=== PATIENT | male | born 1965 | race Caucasian/White ===

== ENCOUNTER 2018-07-27 20:29 | Inpatient (IN) | payer OTHER ==
[~2018-07-27] VITALS: Ht 167.6 cm; Wt 88.1 kg
[2018-07-27] MEDS ORDERED: CEFEPIME 2GM/50 ML (PMX) 50 ML IVPB STA (20:34)
[2018-07-27] MEDS ORDERED: VANCOMYCIN 1 GM (PMX) 250 ML IVPB ONE (21:00)
[2018-07-27] MEDS ORDERED: LABE200T25 PO (21:03)
[2018-07-27] MEDS ORDERED: CLOP75TA19 PO (21:03)
[2018-07-27] MEDS ORDERED: ATOR-2 PO (21:03)
[2018-07-27] MEDS ORDERED: MINO2.5T16 PO (21:04)
[2018-07-27] MEDS ORDERED: ASPI-817 PO (21:04)
[2018-07-27] MEDS ORDERED: AMLO-147 PO (21:05)
[2018-07-27] MEDS ORDERED: CHLO25TA2 PO (21:05)
[2018-07-27] MEDS ORDERED: IPRATROPIUM (NEB) 0.5 MG/2.5 ML AMP HHN ONE (21:30)
[2018-07-27] MEDS ORDERED: ACETAMINOPHEN 325 MG TAB PO ONE (21:30)
[2018-07-27] MEDS ORDERED: DEXAMETHASONE 10 MG/ML 1 ML INJ IV ONE (21:30)
[2018-07-27] MEDS ORDERED: ALBUTEROL 0.083% (NEB) 2.5 MG/3 ML AMP HHN ONE (21:30)
[2018-07-27] MEDS ORDERED: SOD CHLORIDE 0.9% 1,000 ML IV STA (21:47)
[2018-07-27] MEDS ORDERED: NITROGLYCERIN 50 MG/D5W (PMX) 250 ML ONE (22:11)
[2018-07-27] MEDS ORDERED: CEFTRIAXONE 1 GM INJ IM ONE (22:30)
[2018-07-27] MEDS ORDERED: NITROGLYCERIN 50 MG/D5W (PMX) 250 ML IV SCH (22:30)
[2018-07-27] MEDS ORDERED: ONDANSETRON 4 MG INJ IV PRN (22:30)
[2018-07-27] MEDS ORDERED: VANCOMYCIN IV PER PHARMACY XX SCH (22:30)
[2018-07-27] MEDS ORDERED: ACETAMINOPHEN 325 MG TAB PO PRN (22:30)
[2018-07-27] MEDS ORDERED: DOCUSATE SODIUM 100 MG CAP PO PRN (22:30)
[2018-07-27] MEDS ORDERED: morphine 2 MG INJ IV PRN (22:30)
[2018-07-27] MEDS ORDERED: FUROSEMIDE 40 MG INJ IV ONE (22:30)
[2018-07-27] MEDS ORDERED: NORepinephrine 8MG/250 ML (PMX 250 ML IV STA (22:43)
[2018-07-27] MEDS ORDERED: ETOMIDATE 20 MG INJ IV STA (22:43)
[2018-07-27] MEDS ORDERED: MIDAZOLAM (DRIP) 50 mg/50 mL 50 ML IV STA (22:43)
[2018-07-27] MEDS ORDERED: ROCURONIUM 50 MG INJ IV STA (22:43)
[2018-07-27] MEDS ORDERED: MIDAZOLAM (DRIP) 50 mg/50 mL 50 ML IV ONE (22:46)
[2018-07-27] MEDS ORDERED: FENTAnyl (DRIP) 1000 mcg/100mL 100 ML IV ONE (23:00)
--- NOTE | 2018-07-27 23:51 | ERD ---
ER Documentation Chief Complaint Chief Complaint BIBUli RA39,SOB,on CPAP,rec'd albuterol breathing tx HPI This is a 53-year-old gentleman who presents via EMS in respiratory failure. The history is extremely limited. There is a language barrier. An panel cutter was used. Based on a series of repeat conversations as well as family member information it appears the patient was admitted to [facility] approximately 1 week ago. He stayed for 2 weeks during which time he was intubated for respiratory failure diagnosed with pneumonia and possible cardiomyopathy. This is based on discharge paperwork as well. The patient additionally was potentially diagnosed with abdominal aortic dissection. His family reports that they recommended surgery but he did not want the surgery and they were going to schedule for nonemergent surgery in 2-3 weeks. The patient was discharged 1 week ago. Today suddenly the patient became short of breath prompting EMS call. Upon arrival the patient is in respiratory failure. The patient denied any abdominal pain or lower back pain. ROS All systems reviewed and are negative except as per history of present illness. Medications Home Meds Reported Medications Amlodipine Besylate* (Amlodipine Besylate*) 10 Mg Tablet, 10 MG PO DAILY, #30 TA B 07/27/18 Chlorthalidone* (Chlorthalidone*) 25 Mg Tablet, 25 MG PO DAILY, TAB 07/27/18 Aspirin* (Aspirin* EC) 81 Mg Tablet.dr, 81 MG PO DAILY, TAB 07/27/18 Minoxidil* (Lonitin*) 2.5 Mg Tab, 5 MG PO Q12H, TAB 07/27/18 Clopidogrel Bisulfate* (Clopidogrel Bisulfate*) 75 Mg Tablet, 75 MG PO DAILY, #30 TAB 07/27/18 Labetalol Hcl* (Labetalol Hcl*) 200 Mg Tablet, 800 MG PO Q8H, TAB 07/27/18 Atorvastatin* (Atorvastatin*) 80 Mg Tablet, 80 MG PO QHS, #30 TAB 07/27/18 Allergies Allergies: Coded Allergies: No Known Allergy (Unverified , 07/27/18) PMhx/Soc Smoking Status: Unknown if ever smoked FmHx Family History: No diabetes Physical Exam Vitals Vital Signs Date Temp Pulse Resp B/P (MAP) Pulse Ox O2 O2 Flow FiO2 Time Delivery Rate 07/27/18 99 50 23:27 07/27/18 61 17 97/56 (70) 100 [place] 23:20 l Ventilato r 07/27/18 62 16 93/59 (70) 100 [place] 22:58 l Ventilato r 07/27/18 63 16 97 60 22:43 07/27/18 64 84/63 (70) 100 [place] 22:42 l Ventilato r 07/27/18 64 16 84/63 (70) 100 22:41 07/27/18 53 28 94/54 (67) 100 BIPAP 22:35 07/27/18 73 100 60 21:30 07/27/18 60 36 100 60 21:24 07/27/18 100 60 21:20 07/27/18 64 31 120/83 100 BIPAP 20:50 (95) 07/27/18 100.5 66 31 108/68 97 20:35 (81) 07/27/18 75 100 100 20:33 Physical Exam General: The patient has respiratory distress, diaphoresis and respiratory failure Head: Normocephalic, atraumatic. Eyes: Pupils equally reactive, EOM intact ENT: Moist mucous membranes Neck: Supple, no lymphadenopathy Respiratory: Respiratory distress, increased work of breathing, rhonchi and rales bilaterally Cardiovascular: Tachycardia, no murmurs, rubs, or gallops Abdominal: Soft, non-tender, non-distended, no peritoneal signs, no pulsatile mass, abdominal wall ascites : Deferred MSK: Anasarca to upper and lower extremities Neurologic: Limited exam but moving all extremities Skin: No rash Psych: Normal mood Result Diagram: 07/27/18204107/27/182041 Results 24 hrs Laboratory Tests Test 07/27/18 20:34 07/27/18 20:42 07/27/18 20:43 07/27/18 22:43 Blood Gas Blood arterial Blood arterial Specimen Source Arterial Blood 07/27/2018 8:50: 07/27/2018 11:15 Date Drawn 33 PM :53 PM Arterial Blood 7.335 7.246 pH (Temp corrected ) Arterial Blood 33.9 mmhg 39.9 mmhg pCO2 (Temp correct) Arterial Blood 352.5 mmHG 110.2 mmHG pO2 (Temp corrected ) Arterial Blood 17.7 mmol/L 16.9 mmol/L HCO3 Arterial Blood -7.4 mmol/L -9.6 mmol/L Base Excess Arterial Blood 99.4 mmHG 96.8 mmHG Oxygen Saturati on Sg Test N/A N/A Arterial Blood Right Brachial Right Brachial Gas Puncture Site Arterial 0.3 % 0.3 % Blood Carboxyhe moglobin Arterial Blood 0.3 % 0.5 % Methemoglobin Blood Gas A-a 326.6 mmHg 273.7 mmHg O2 Differential Oxyhemoglobin 98.8 % 96.0 % Percent Blood Gas 37.0 C 37.0 C Temperature Blood Gas 18.0 16.0 Respiration Rate Blood Gas 32 16 Actual Respiration Rat e Blood Gas MASK - BIPAP VENT - AC Modality FiO2 100.0 % 60.0 % Blood Gas 10 Pressure Support Blood Gas 15/5 IPAP/EPAP Ratio Blood Gas UP MM Notified Whom Blood Gas 07/27/2018 9:04: 07/27/2018 11:23 Notified Time 21 PM :41 PM White Blood 7.5 10^3/ul Count Red Blood Count 3.22 10^6/ul Hemoglobin 8.5 g/dl Hematocrit 25.8 % Mean 80.1 fl Corpuscular Volume Mean 26.4 pg Corpuscular Hemoglobin Mean 32.9 g/dl Corpuscular Hemoglobin Conc ent Red Cell 14.2 % Distribution Width Platelet Count 334 10^3/UL Mean Platelet 10.7 fl Volume Immature 0.400 % Granulocytes % Neutrophils % 80.8 % Lymphocytes % 12.6 % Monocytes % 6.0 % Eosinophils % 0.1 % Basophils % 0.1 % Nucleated Red 0.0 /100WBC Blood Cells % Immature 0.030 10^3/ul Granulocytes # Neutrophils # 6.1 10^3/ul Lymphocytes # 1.0 10^3/ul Monocytes # 0.5 10^3/ul Eosinophils # 0.0 10^3/ul Basophils # 0.0 10^3/ul Nucleated Red 0.0 10^3/ul Blood Cells # Prothrombin 14.5 Sec Time Prothrombin 1.1 Time Ratio INR 1.12 International Normalized Rati o Activated 38.4 Sec Partial Thrombo plast Time Sodium Level 127 mmol/L Potassium Level 4.8 mmol/L Chloride Level 95 mmol/L Carbon Dioxide 21 mmol/L Level Anion Gap 11 Blood Urea 71 mg/dl Nitrogen Creatinine 5.53 mg/dl Est Glomerular 11 mL/min Filtrat Rate mL/min Glucose Level 121 mg/dl Hemoglobin A1c 6.3 % Calcium Level 7.7 mg/dl Total Bilirubin 0.1 mg/dl Direct 0.00 mg/dl Bilirubin Indirect 0.1 mg/dl Bilirubin Aspartate Amino 76 IU/L Transf (AST/SGO T) Alanine 102 IU/L Aminotransferas e (ALT/SGPT) Alkaline 273 IU/L Phosphatase Troponin I 0.078 ng/ml B-Type 5310 PG/ML Natriuretic Peptide Total Protein 7.0 g/dl Albumin 3.5 g/dl Globulin 3.50 g/dl Albumin/Globuli 1.00 n Ratio Lipase 3466 U/L POC Venous 1.9 mmol/L Lactate Blood Gas Tidal 550.0 mL Volume Blood Gas Low 5.0 cmH2O PEEP Setting Blood Gas 23.0 Insp[address] Pressure Blood Gas DR. YANEZ Critical Value Read Back Test 07/27/18 23:14 POC Venous 1.1 mmol/L Lactate Current Medications Medications Dose Sig/Ritchie Start Time Status Last (Trade) Ordered Route PRN Stop Time Admin Dose Reason Admin Cefepime HCl 50 ml @ ONCE STAT 07/27/18 DC 07/27/18 100 mls/hr IVPB 20:34 20:54 07/27/18 21:03 Vancomycin 250 ml @ ONCE ONCE 07/27/18 DC 07/27/18 HCl 125 mls/hr IVPB 21:00 21:25 07/27/18 22:59 Albuterol 10 mg ONCE ONCE 07/27/18 DC 07/27/18 (Proventil HHN 21:30 21:24 0.083% (Neb)) 07/27/18 21:31 Ipratropium 5 mg ONCE ONCE 07/27/18 DC 07/27/18 [place] HHN 21:30 21:23 (Atrovent 07/27/18 21:31 0.02% (Neb)) 10 mg ONCE ONCE 07/27/18 DC 07/27/18 Dexamethasone IV 21:30 21:57 (Decadron) 07/27/18 21:31 650 mg ONCE ONCE 07/27/18 DC 07/27/18 Acetaminophen PO 21:30 21:57 (Tylenol 07/27/18 21:31 Tab) Sodium 1,000 ml @ Q1H STAT 07/27/18 DC 07/27/18 Chloride 1,000 mls/hr IV 21:47 21:56 07/27/18 22:46 250 ml @ ud STK-MED 07/27/18 DC Nitroglycerin ONCE .ROUTE 22:11 / Dextrose 07/27/18 22:12 250 ml @ TITRATE IV 07/27/18 Nitroglycerin 80 mls/hr 22:30 / Dextrose Furosemide 40 mg ONCE ONCE 07/27/18 DC (Lasix) IV 22:30 07/27/18 22:31 Ondansetron 4 mg Q6H PRN 07/27/18 HCl (Zofran IV NAUSEA 22:30 Inj) AND/OR VOMITING Albuterol/ 3 ml Q4H RESP 07/28/18 Ipratropium THERAPY NEB 01:00 (Duoneb) Albuterol 2.5 mg Q4H RESP 07/28/18 DC (Proventil THERAPY NEB 01:00 0.083% (Neb)) 07/28/18 01:00 650 mg Q6H PRN 07/27/18 Acetaminophen PO PAIN 22:30 (Tylenol LEVEL 1-3 OR Tab) FEVER Morphine 2 mg Q4H PRN 07/27/18 Sulfate IV PAIN 22:30 (morphine) LEVEL 7-10 Docusate 100 mg Q12H PRN 07/27/18 Sodium PO 22:30 (Colace) CONSTIPATION 40 mg DAILY@06 07/28/18 Pantoprazole PO 06:00 (Protonix Tab) Enoxaparin 30 mg DAILY SC 07/28/18 Sodium 09:00 (Lovenox) Vancomycin VANCOMYCIN PER 07/27/18 HCl (Vanco PER PHARMACY PROTOCOL XX 22:30 Iv Per Pharmacy) Ceftriaxone 1 gm ONCE ONCE 07/27/18 DC Sodium IM 22:30 (Rocephin) 07/27/18 22:44 Rocuronium 100 mg ONCE STAT 07/27/18 DC 07/27/18 [place] IV 22:43 22:36 (Zemuron) 07/27/18 22:46 Etomidate 20 mg ONCE STAT 07/27/18 DC 07/27/18 (Amidate) IV 22:43 22:36 07/27/18 22:46 Midazolam 50 ml @ 3 ONCE STAT 07/27/18 07/27/18 HCl mls/hr IV 22:43 23:24 07/28/18 15:22 Fentanyl 100 ml @ TITRATE 07/27/18 2.5 mls/hr ONCE IV 23:00 07/29/18 14:59 250 ml @ ONCE STAT 07/27/18 07/27/18 Norepinephrin 7.5 mls/hr IV 22:43 23:22 e 07/29/18 08:02 Midazolam 50 ml @ ud STK-MED 07/27/18 DC HCl ONCE IV 22:46 07/27/18 22:47 Vancomycin 100 ml @ ONCE ONCE 07/28/18 HCl 100 mls/hr IVPB 00:00 07/28/18 00:59 Procedures/MDM EKG, MONITORS, & DIAGNOSTIC IMAGING: EKG: I reviewed and interpreted a 12-lead EKG. Rhythm: Left bundle branch block ST Changes: No contiguous ST segment elevations T waves: No contiguous T wave inversions Impression: Abnormal EKG Chest x-ray: I reviewed and interpreted a 1 view of the chest Mediastinum: No enlargement Cardiac silhouette: cardiomegaly Airspace: Possible right-sided pneumonia Bones: No evidence of fracture Repeat chest x-ray: PROCEDURES: Intubation Note: Indication: Airway protection Consent: This was an emergent situation, implied consent was observed RSI Medications: Etomidate 20 mg, Rocuronium 100 mg Tube size: 7.5 Secured at: 24 at the mouth Procedure: Endotracheal intubation was performed. The patient was preoxygenated with supplemental oxygen, the room was set up with emergency airway equipment including [id number], suction, and adjunct airways. Direct visualization of the cords was performed with direct laryngoscopy using video laryngoscope, insertion of the endotracheal tube through the cords was visualized. Bilateral breath sounds were auscultated, color change was observed. The tube was then secured in a postintubation chest x-ray was ordered. The patient tolerated the procedure well there were no complications. Central Line Note: Consent: Critical patient, unable to obtain informed consent Indication: Critically ill patient requiring specialized vascular access for fluid or pressor management Location: Right IJ Indication: Shock Procedure: Sterile procedure was observed throughout insertion of the central line. The insertion site was prepped with sterile solution. Ultrasound-guided identification of the vein was performed. Insertion of a needle into the vein was obtained with return of dark, nonpulsatile blood. The wire was then threaded through the needle without complication. The wire was then identified within the vein using ultrasound. A small skin incision was made, the needle was removed intact, dilation of the vein was performed and insertion of a triple lumen catheter was completed. The catheter was then sutured to the skin. All 3 ports sin back and flushed without difficulty. A sterile dressing was applied. The patient tolerated the procedure well there were no complications. Emergency Bedside Ultrasound: Indication: Central line Probe Type: Linear Findings: Dynamic ultrasound utilizing compressive technique with both linear and horizontal views, additional images showing wire within the venous system were obtained. The images were saved along with patient information on a paper chart to be scanned into EMR. The patient tolerated the procedure well and there were no complications. A post-line chest x-ray was ordered as indicated. LAB INTERPRETATION: * CBC reveals no evidence of leukocytosis, mild anemia of 8.5. * Chemistry shows hyponatremia, acute renal failure of 71 and 5.53, normal lactic acid of 1.9, negative troponin, elevated BNP, transaminitis with elevated lipase of 3400 * Arterial blood gas is reassuring initially, repeat concerning for acidosis, metabolic MEDICAL DECISION MAKING: The patient arrives in respiratory failure. His clinical exam and presentation are complicated. Initially based on the patient's clinical appearance of anasarca and respiratory failure this would be consistent with pulmonary edema however the patient's chest x-ray does not support this diagnosis. Cardiogenic process is still highly likely given the patient's documentation and recent discharge. However, pneumonia could be a possibility as well. Consider possible underlying lung disease such as COPD or emphysema. The patient did have a diagnosis of abdominal aortic dissection but denies any abdominal pain or back pain. I do not believe there is an acute aortic process at this time. ER COURSE: * Upon initial evaluation the patient was in respiratory failure and started on positive pressure ventilation. * His initial blood pressure was 120 systolic, EMS reported hypotension. Given the patient's clinical appearance of anasarca I was questioning aggressive fluid resuscitation. Patient was started on BiPAP and treated for reactive airway disease with steroids, breathing treatment * He was covered for pneumonia with blood cultures prior to antibiotics and broad-spectrum antibiotics. * While the patient does have Sirs criteria does not have a fever and does not have a white count. Infectious etiology seems less likely. Given the patient's volume status I am concerned that a 30 cc/kg bolus of saline would be contraindicated. * The patient's blood pressure continued to be in the 120s. A trial of 1 L of normal saline was initiated but the family provided further history that this was more consistent with cardiogenic process. The fluid was discontinued. At that time the patient's blood pressure jumped into the 180 range. Nitroglycerin was ordered for afterload reduction. Additionally Lasix was ordered. * However, prior to initiation of these therapies the patient's blood pressure dropped back into the 70s and 80s. * At this point the patient's respiratory status declined. I was concerned for respiratory failure and apnea. Intubation was necessary. * The patient was intubated and a triple-lumen catheter was inserted. Levo to the bedside. Continue with gentle fluid resuscitation. * Concern for possible cardiogenic shock. The patient has a very complicated presentation including acute renal failure, acute respiratory failure and concern for possible cardiogenic shock. Nephrology, pulmonology and cardiolo gy were consulted. * A stat echo has been ordered. CONSULTATION: Boiler Control Room Operator james Bell. Dr Leroy implementation project coordinator, notified Nephrology Dr. Rajiv Martínez notified Pulmonology Dr. Archer notified DISPOSITION PLAN: Intensive care unit Accepting care team and consultations: I discussed the current laboratory data, diagnostic imaging and emergency care provided. Admitting team: Dr. De La Rosa Admitting team indication: Insurance directed Sepsis Documentation: Patient's infectious symptoms have not stabilized and the patient is at risk of rapid decompensation. The patient will be admitted for careful hydration, antibiotic therapy, and infectious source control. SEVERE SEPSIS CRITERIA: Infectious source: Healthcare associated pneumonia End organ damage indicated by: Acute Resp Failure (sat < 92% w/o oxygen) Accounts Payable Professional > 2.0 SEPSIS MANAGEMENT Time of recognition of sepsis: Upon MD assessment. Time of recognition of severe sepsis: Upon MD assessment. Time of recognition of septic shock: Approximately 10:30 PM. 3 HOUR BUNDLE Blood cultures x 2 before broad-spectrum antibiotics: Yes 30 ml/kg NS bolus a full bolus was not provided given reasoning above Initial lactate less than 2 Repeat lactate less than 2 SEPTIC SHOCK ASSESSMENT: No lactic acid > 4.0 YES Persistent hypotension (SBP < 90 or 40 mmHg drop, MAP < 65) despite mild volume bolus VOLUME REASSESSMENT FOR SEPTIC SHOCK: Reevaluation Time: 11:48pm Temperature pending, reviewed in electronic medical record, heart rate 61, respiratory rate 17, blood pressure 97/56, pulse ox 100% on ventilator Heart regular rate & rhythm Lungs rhonchi Skin warm & dry Cap Refill less than 2 seconds Peripheral pulses radially present PERSISTENT HYPOTENSION TREATMENT: Comfort care no Central line RIJ Vasopressor started Levo to bedside I considered further perfusion assessment with CVP measurement, SCVO2, bedside ultrasound volume assessment, passive leg raise, trial of further fluid bolus. And proceeded with careful fluid bolus of NSS, broad spectrum antibiotics, and admission. CRITICAL CARE Critical care time 55 minutes Emergent fluid management while maintaining close respiratory support. Provision of immediate and broad-spectrum antibiotic therapy. Simultaneous assessment for possible sources in order to direct targeted therapy. Consideration for invasive and chemical support to prevent cardiopulmonary mason apse. Critical care time is independent of procedures performed. Departure Diagnosis: Primary Impression: Acute respiratory failure Respiratory failure complication: hypoxia Qualified Codes: J96.01 - Acute respiratory failure with hypoxia Additional Impressions: Healthcare-associated pneumonia Septic shock Acute renal failure Acute renal failure type: unspecified Qualified Codes: N17.9 - Acute kidney failure, unspecified Transaminitis Pancreatitis Chronicity: acute Pancreatitis type: unspecified pancreatitis type Acute pancreatitis complication: unspecified Qualified Codes: K85.90 - Acute pancreatitis without necrosis or infection, unspecified Hyponatremia Condition: Critical NANCY YANEZ MD Jul 27, 2018 23:49
[2018-07-28] VITALS (53 sets, daily range): BP systolic 102–141; BP diastolic 53–83; PULSE 50–61; RESP 13–20; Ht 167.6 cm; Wt 88.1 kg
[2018-07-28] MEDS ORDERED: VANCOMYCIN 500 MG (PMX) 100 ML IVPB ONE
[2018-07-28] MEDS ORDERED: ALBUTEROL 0.083% (NEB) 2.5 MG/3 ML AMP NEB SCH (01:00)
[2018-07-28] MEDS ORDERED: ALBUTEROL/IPRATROPIUM (NEB) 3 ML AMP NEB SCH (01:00)
[2018-07-28] MEDS: ALBUTEROL HFA 8 GM INHALER INH SCH ×5 (05:06→20:02)
[2018-07-28] MEDS: IPRATROPIUM (HFA) 12.9 GM INHALER INH SCH ×5 (05:06→20:02)
[2018-07-28] MEDS: PANTOPRAZOLE (EC) 40 MG TAB PO SCH (06:00)
--- NOTE | 2018-07-28 08:55 | CONS ---
Date/Time of Note Date/Time of Note DATE: 07/28/18 TIME: 08:50 Assessment/Plan Assessment/Plan Assessment/Plan Chest x-ray showing pulmonary edema with cardiomegaly. Ventilator setting; AC of 22, tidal volume 550, PEEP of 10, 100% FiO2. Assessment recommendations; 1 patient with history of cardiomyopathy admitted for CHF exacerbation leading to respiratory failure. 2. Likely underlying sleep apnea. 3. Morbid obesity. 4. Diabetes. 5. Thoracic seen on chest x-ray. Aortic aneurysm 6. Likely chronic renal insufficiency with acute renal failure. 7. UTI. 8. History of hypertension. Continue current supportive care. Wean down FiO2 as tolerated. Obtain follow- up chest x-ray in 24 hours. Obtain nephrology consult. 40 minutes of critical care time was spent evaluating the patient. Result Diagram: 07/27/18204107/28/180 Results 24hrs Laboratory Tests Test 07/27/18 20:34 07/27/18 20:42 07/27/18 20:43 07/27/18 22:43 Blood Gas Blood arterial Blood arterial Specimen Source Arterial Blood 07/27/2018 8:50: 07/27/2018 11:15 Date Drawn 33 PM :53 PM Arterial Blood 7.335 L 7.246 *L pH (Temp corrected) Arterial Blood 33.9 L 39.9 pCO2 (Temp correct) Arterial Blood 352.5 H 110.2 H pO2 (Temp corrected) Arterial Blood 17.7 L 16.9 L HCO3 Arterial Blood -7.4 L -9.6 L Base Excess Arterial Blood 99.4 H 96.8 Oxygen Saturatio n Sg Test N/A N/A Arterial Blood Right Brachial Right Brachial Gas Puncture Site Arterial 0.3 0.3 Blood Carboxyhem oglobin Arterial Blood 0.3 0.5 Methemoglobin Blood Gas A-a O2 326.6 H 273.7 H Differential Oxyhemoglobin 98.8 96.0 Percent Blood Gas 37.0 37.0 Temperature Blood Gas 18.0 16.0 Respiration Rate Blood Gas Actual 32 16 Respiration Rate Blood Gas MASK - BIPAP VENT - AC Modality FiO2 100.0 60.0 Blood Gas 10 Pressure Support Blood Gas 15/5 IPAP/EPAP Ratio Blood Gas UP MM Notified Whom Blood Gas 07/27/2018 9:04: 07/27/2018 11:23 Notified Time 21 PM :41 PM White Blood 7.5 Count Red Blood Count 3.22 L Hemoglobin 8.5 L Hematocrit 25.8 L Mean Corpuscular 80.1 L Volume Mean Corpuscular 26.4 L Hemoglobin Mean Corpuscular 32.9 Hemoglobin Maria A nt Red Cell 14.2 Distribution Width Platelet Count 334 Mean Platelet 10.7 H Volume Immature 0.400 Granulocytes % Neutrophils % 80.8 H Lymphocytes % 12.6 L Monocytes % 6.0 Eosinophils % 0.1 Basophils % 0.1 Nucleated Red 0.0 Blood Cells % Immature 0.030 Granulocytes # Neutrophils # 6.1 Lymphocytes # 1.0 Monocytes # 0.5 Eosinophils # 0.0 Basophils # 0.0 Nucleated Red 0.0 Blood Cells # Prothrombin Time 14.5 Prothrombin Time 1.1 Ratio INR 1.12 International Normalized Ratio Activated 38.4 H Partial Thrombop last Time Sodium Level 127 L Potassium Level 4.8 Chloride Level 95 L Carbon Dioxide 21 Level Anion Gap 11 Blood Urea 71 H Nitrogen Creatinine 5.53 H Est Glomerular 11 L Filtrat Rate mL/min Glucose Level 121 Hemoglobin A1c 6.3 H Calcium Level 7.7 L Total Bilirubin 0.1 L Direct Bilirubin 0.00 Indirect 0.1 Bilirubin Aspartate Amino 76 H Transf (AST/SGOT ) Alanine 102 H Aminotransferase (ALT/SGPT) Alkaline 273 H Phosphatase Troponin I 0.078 B-Type 5310 H Natriuretic Peptide Total Protein 7.0 Albumin 3.5 Globulin 3.50 H Albumin/Globulin 1.00 Ratio Lipase 3466 H POC Venous 1.9 Lactate Blood Gas Tidal 550.0 Volume Blood Gas Low 5.0 PEEP Setting Blood Gas 23.0 Inspiratory Pressure Blood Gas DR. YANEZ Critical Value Read Back Test 07/27/18 23:14 07/28/18 00:20 07/28/18 01:41 07/28/18 04:00 POC Venous 1.1 Lactate Urine Color ROMULO Urine Clarity TURBID A Urine pH 5.0 Urine Specific 1.018 [place] Urine Ketones TRACE A Urine Nitrite NEGATIVE Urine Bilirubin NEGATIVE Urine NEGATIVE Urobilinogen Urine Leukocyte NEGATIVE Esterase Urine 96 H Microscopic RBC Urine 24 H Microscopic WBC Urine Bacteria FEW A Urine Mucus FEW A Urine Hemoglobin 1+ H Urine Glucose NEGATIVE Urine Total 3+ H Protein Lactic Acid 0.8 Level Sodium Level 131 L Potassium Level 5.1 Chloride Level 97 Carbon Dioxide 17 L Level Anion Gap 17 H Blood Urea 75 H Nitrogen Creatinine 5.85 H Est Glomerular 10 L Filtrat Rate mL/min Glucose Level 173 Calcium Level 7.6 L Lipase 2404 H Consultation Date/Type/Reason Admit Date/Time Jul 27, 2018 at 22:00 Date of Consultation: Jul 28, 2018 Type of Consult Pulmonary/critical care Patient is a 53-year-old male who was brought into the ER yesterday with shortness of breath. Patient was found to be in respiratory failure and was intubated. By the time I saw him in ICU, patient is orally intubated and sedated. History was obtained from patient's sister as well as medical record. Patient however did not appear to be in any distress. Past medical history; 1. CHF. 2. Likely chronic type II respiratory failure. 3. Diabetes. 4. Chronic lower extremity edema. 5. Apparent chronic renal insufficiency/failure. Medications; reviewed. Patient is currently on insulin 7 units/h, propofol 20 mics per minute. Other medications were reviewed as well. Allergies; none. Social; positive for smoking alcohol abuse. Family history; patient is single, has 3 children. Has 2 sisters who take care of him. Occupational history; patient is on disability/medical leave. Review of system; unable to be obtained. General exam; young male, morbidly obese, orally intubated, sedated, currently in no distress. Past Medical History Medications Current Medications Nitroglycerin/ Dextrose 250 ml @ 80 mls/hr TITRATE IV ; Start 07/27/18 at 22:30 Ondansetron HCl (Zofran Inj) 4 mg Q6H PRN IV NAUSEA AND/OR VOMITING; Start 07/27/18 at 22:30 Acetaminophen (Tylenol Tab) 650 mg Q6H PRN PO PAIN LEVEL 1-3 OR FEVER; Start 07/27/18 at 22:30 Morphine Sulfate (morphine) 2 mg Q4H PRN IV PAIN LEVEL 7-10; Start 07/27/18 at 22:30 Docusate Sodium (Colace) 100 mg Q12H PRN PO CONSTIPATION; Start 07/27/18 at 22:30 Pantoprazole (Protonix Tab) 40 mg DAILY@06 PO ; Start 07/28/18 at 06:00 Enoxaparin Sodium (Lovenox) 30 mg DAILY SC ; Start 07/28/18 at 09:00 Vancomycin HCl (Vanco Iv Per Pharmacy) VANCOMYCIN PER PHARMACY PER PROTOCOL XX ; Start 07/27/18 at 22:30 Midazolam HCl 50 ml @ 3 mls/hr ONCE STAT IV Last administered on 07/27/18at 23:24; Admin Dose 3 MLS/HR; Start 07/27/18 at 22:43; Stop 07/28/18 at 15:22 Fentanyl 100 ml @ 2.5 mls/hr TITRATE ONCE IV ; Start 07/27/18 at 23:00; Stop 07/29/18 at 14:59 Norepinephrine 250 ml @ 7.5 mls/hr ONCE STAT IV Last administered on 07/27/18at 23:22; Admin Dose 7.5 MLS/HR; Start 07/27/18 at 22:43; Stop 07/29/18 at 08:02 Albuterol (Ventolin Hfa) 4 puff Q4H RESP THERAPY INH Last administered on 07/28/18at 05:06; Admin Dose 4 PUFF; Start 07/28/18 at 05:00 Ipratropium [place] (Atrovent Hfa) 4 puff Q4H RESP THERAPY INH Last administered on 07/28/18at 05:06; Admin Dose 4 PUFF; Start 07/28/18 at 05:00 Allergies: Coded Allergies: No Known Allergy (Unverified , 07/27/18) Social History Smoking Status: Unknown if ever smoked Exam/Review of Systems Vital Signs Vitals Vital Signs Date Temp Pulse Resp B/P (MAP) Pulse Ox O2 O2 Flow FiO2 Time Delivery Rate 07/28/18 51 08:00 07/28/18 15 110/67 100 06:30 (81) 07/28/18 50 05:07 07/28/18 97.2 04:00 07/28/18 Mechanical 00:47 Ventilator Intake and Output 07/27/18 07/27/18 07/28/18 1515:00 23:00 07:00 IntakeIntake Total 1000 ml OutputOutput Total 325 ml BalanceBalance 675 ml Exam HEENT exam; supple neck, JVD difficult to see because of short neck. No thyromegaly. Orally intubated. Patient has fair dentition. Pupils are small bilaterally. Chest exam; diminished breath sounds bilaterally. S1-S2 audible, no murmurs. Regular rhythm. Abdomen exam; soft, protuberant. Organomegaly difficult to assess. Bowel sounds are sluggish. Extremity exam; no peripheral edema. Chronic lower extremity skin changes. DISTRIBUTION ACCOUNTING CLERK exam; patient is sedated. Medications Medications Current Medications Nitroglycerin/ Dextrose 250 ml @ 80 mls/hr TITRATE IV ; Start 07/27/18 at 22:30 Ondansetron HCl (Zofran Inj) 4 mg Q6H PRN IV NAUSEA AND/OR VOMITING; Start 07/27/18 at 22:30 Acetaminophen (Tylenol Tab) 650 mg Q6H PRN PO PAIN LEVEL 1-3 OR FEVER; Start 07/27/18 at 22:30 Morphine Sulfate (morphine) 2 mg Q4H PRN IV PAIN LEVEL 7-10; Start 07/27/18 at 22:30 Docusate Sodium (Colace) 100 mg Q12H PRN PO CONSTIPATION; Start 07/27/18 at 22:30 Pantoprazole (Protonix Tab) 40 mg DAILY@06 PO ; Start 07/28/18 at 06:00 Enoxaparin Sodium (Lovenox) 30 mg DAILY SC ; Start 07/28/18 at 09:00 Vancomycin HCl (Vanco Iv Per Pharmacy) VANCOMYCIN PER PHARMACY PER PROTOCOL XX ; Start 07/27/18 at 22:30 Midazolam HCl 50 ml @ 3 mls/hr ONCE STAT IV Last administered on 07/27/18at 23:24; Admin Dose 3 MLS/HR; Start 07/27/18 at 22:43; Stop 07/28/18 at 15:22 Fentanyl 100 ml @ 2.5 mls/hr TITRATE ONCE IV ; Start 07/27/18 at 23:00; Stop 07/29/18 at 14:59 Norepinephrine 250 ml @ 7.5 mls/hr ONCE STAT IV Last administered on 07/27at 23:22; Admin Dose 7.5 MLS/HR; Start 07/27/18 at 22:43; Stop 07/29/18 at 08:02 Albuterol (Ventolin Hfa) 4 puff Q4H RESP THERAPY INH Last administered on 07/28/18at 05:06; Admin Dose 4 PUFF; Start 07/28/18 at 05:00 Ipratropium [place] (Atrovent Hfa) 4 puff Q4H RESP THERAPY INH Last administer ed on 07/28/18at 05:06; Admin Dose 4 PUFF; Start 07/28/18 at 05:00 DERIAN WU Jul 28, 2018 08:55
[2018-07-28] MEDS: ENOXAPARIN 30 MG/0.3 ML SYG SC SCH (09:19)
[2018-07-28] MEDS ORDERED: DEXTROSE 50% 50 ML SYRINGE IV PRN ×2 (09:30)
[2018-07-28] MEDS ORDERED: GLUCAGON 1 MG INJ IM PRN (09:30)
[2018-07-28] MEDS ORDERED: GLUCOSE GEL 15 GRAM TUBE BUCCAL PRN (09:30)
[2018-07-28] MEDS ORDERED: GLUCOSE GEL 15 GRAM TUBE PO PRN ×2 (09:30)
--- NOTE | 2018-07-28 09:55 | CONS ---
Date/Time of Note Date/Time of Note DATE: 07/28/18 TIME: 09:54 Assessment/Plan Assessment/Plan Assessment/Plan 1. Acute kidney injury Oliguric on CKD III due to ATN + possible Dissection causing poor perfusion 2. Acute fluid overload with pulmoanry edema 3. acute hypoxemic resp failure due to CHF + pulmonary Edema + Pneumonia 4. 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 Hyponatremia due to Hypervolemic Hyponatremia from CHF 6. H/o CHF wiht last known EF 22% as per sister 7. H/o HTN 8. H/o HL 9. H/o Aortic dissection type B Recently diagnosed at [facility] - type B dissection from the left subclavian to the left iliac artery Plan: Overnight pt received Lasix 40mg IV x 1 dose, Urine output did not sisal picker- will start bumex 1mg/hr x 12 hr- pt has been making adequate urine since then S/p vascular surgery consultation, agree with transfer to Tertiary level of care BP has been stable, IV abx for PNA, renally dose all abx and Monitor electrolytes Discussed with pt sister at bedside with grenadian translation about possible need of HD if Urine output do not improve. she is agreeable to have blade Dialysis catheter and HD initiaton if needed Pt will need CT angiogram of abodminal aorta for dissection but he needs to get transferred to Tertiary level of care. Renal US has been ordered Urine Studies including Urine Na, urine prot/cr ration, urine eosinophisl, CK total, Uric acid Result Diagram: 07/27/18204107/28/18 0400 Results 24hrs Laboratory Tests Test 07/27/18 20:34 07/27/18 20:42 07/27/18 20:43 07/27/18 22:43 Blood Gas Blood arterial Blood arterial Specimen Source Arterial Blood 07/27/2018 8:50: 07/27/2018 11:15 Date Drawn 33 PM :53 PM Arterial Blood 7.335 L 7.246 *L pH (Temp corrected) Arterial Blood 33.9 L 39.9 pCO2 (Temp correct) Arterial Blood 352.5 H 110.2 H pO2 (Temp corrected) Arterial Blood 17.7 L 16.9 L HCO3 Arterial Blood -7.4 L -9.6 L Base Excess Arterial Blood 99.4 H 96.8 Oxygen Saturatio n Sg Test N/A N/A Arterial Blood Right Brachial Right Brachial Gas Puncture Site Arterial 0.3 0.3 Blood Carboxyhem oglobin Arterial Blood 0.3 0.5 Methemoglobin Blood Gas A-a O2 326.6 H 273.7 H Differential Oxyhemoglobin 98.8 96.0 Percent Blood Gas 37.0 37.0 Temperature Blood Gas 18.0 16.0 Respiration Rate Blood Gas Actual 32 16 Respiration Rate Blood Gas MASK - BIPAP VENT - AC Modality FiO2 100.0 60.0 Blood Gas 10 Pressure Support Blood Gas 15/5 IPAP/EPAP Ratio Blood Gas UP MM Notified Whom Blood Gas 07/27/2018 9:04: 07/27/2018 11:23 Notified Time 21 PM :41 PM White Blood 7.5 Count Red Blood Count 3.22 L Hemoglobin 8.5 L Hematocrit 25.8 L Mean Corpuscular 80.1 L Volume Mean Corpuscular 26.4 L Hemoglobin Mean Corpuscular 32.9 Hemoglobin Maria A nt Red Cell 14.2 Distribution Width Platelet Count 334 Mean Platelet 10.7 H Volume Immature 0.400 Granulocytes % Neutrophils % 80.8 H Lymphocytes % 12.6 L Monocytes % 6.0 Eosinophils % 0.1 Basophils % 0.1 Nucleated Red 0.0 Blood Cells % Immature 0.030 Granulocytes # Neutrophils # 6.1 Lymphocytes # 1.0 Monocytes # 0.5 Eosinophils # 0.0 Basophils # 0.0 Nucleated Red 0.0 Blood Cells # Prothrombin Time 14.5 Prothrombin Time 1.1 Ratio INR 1.12 International Normalized Ratio Activated 38.4 H Partial Thrombop last Time Sodium Level 127 L Potassium Level 4.8 Chloride Level 95 L Carbon Dioxide 21 Level Anion Gap 11 Blood Urea 71 H Nitrogen Creatinine 5.53 H Est Glomerular 11 L Filtrat Rate mL/min Glucose Level 121 Hemoglobin A1c 6.3 H Calcium Level 7.7 L Total Bilirubin 0.1 L Direct Bilirubin 0.00 Indirect 0.1 Bilirubin Aspartate Amino 76 H Transf (AST/SGOT ) Alanine 102 H Aminotransferase (ALT/SGPT) Alkaline 273 H Phosphatase Troponin I 0.078 B-Type 5310 H Natriuretic Peptide Total Protein 7.0 Albumin 3.5 Globulin 3.50 H Albumin/Globulin 1.00 Ratio Lipase 3466 H POC Venous 1.9 Lactate Blood Gas Tidal 550.0 Volume Blood Gas Low 5.0 PEEP Setting Blood Gas 23.0 Inspiratory Pressure Blood Gas DR. YANEZ Critical Value Read Back Test 07/27/18 23:14 07/28/18 00:20 07/28/18 01:41 07/28/18 04:00 POC Venous 1.1 Lactate Urine Color ROMULO Urine Clarity TURBID A Urine pH 5.0 Urine Specific 1.018 [place] Urine Ketones TRACE A Urine Nitrite NEGATIVE Urine Bilirubin NEGATIVE Urine NEGATIVE Urobilinogen Urine Leukocyte NEGATIVE Esterase Urine 96 H Microscopic RBC Urine 24 H Microscopic WBC Urine Bacteria FEW A Urine Mucus FEW A Urine Hemoglobin 1+ H Urine Glucose NEGATIVE Urine Total 3+ H Protein Lactic Acid 0.8 Level Sodium Level 131 L Potassium Level 5.1 Chloride Level 97 Carbon Dioxide 17 L Level Anion Gap 17 H Blood Urea 75 H Nitrogen Creatinine 5.85 H Est Glomerular 10 L Filtrat Rate mL/min Glucose Level 173 Calcium Level 7.6 L Triglycerides 155 H Level Lipase 2404 H Consultation Date/Type/Reason Admit Date/Time Jul 27, 2018 at 22:00 Date of Consultation: Jul 28, 2018 Type of Consult NEPHROLOGY Reason for Consultation Acute on chronic renal failure, fluid overload Requesting Provider: SEVEN PINA MD Hx of Present Illness 53 M with PMHx of HTN, DM II, H/o Possible CKD who was recently at [facility] for Aortic Dissection At that time pt had a Acute renal failure as per Sister then he was recovered from it. He declined to have Intervention for aortic dissection as per Chart review. pt [facility] with SOB. In ED he was noted to have Pulmonary edema , went into hypoxic respiratory failure, required intubation and placed on ventilator. Post Transfusion pt was admitted to [facility] ICU. On admission 71/5.53, Na 127 on admission. Pt received lasix 40mg IV X 1 dose , and put out around 300 cc urine since then. Pt currently orally intuabted on ventilator, has been on IV abx for Pneumonia coverage. Unable to obtain ROS from patient. Pt BUN/Cr today AM 75/5.85, Na 131- Renal has been consulted for Oliguric NICHOLE on CKD, Hyperkalemia, Hyponatremia and Metbaolic acidosis with fluid overload. Subjective hx not possible: pt non-verbal, other (Intubated on ventilator ) Past Medical History Medical History: diabetes, high cholesterol, hypertension, renal disease, other (Abdominal aortic aneurysm, CHF with EF 22%) Medications Current Medications Nitroglycerin/ Dextrose 250 ml @ 80 mls/hr TITRATE IV ; Start 07/27/18 at 22:30 Ondansetron HCl (Zofran Inj) 4 mg Q6H PRN IV NAUSEA AND/OR VOMITING; Start 07/27/18 at 22:30 Acetaminophen (Tylenol Tab) 650 mg Q6H PRN PO PAIN LEVEL 1-3 OR FEVER; Start 07/27/18 at 22:30 Morphine Sulfate (morphine) 2 mg Q4H PRN IV PAIN LEVEL 7-10; Start 07/27/18 at 22:30 Docusate Sodium (Colace) 100 mg Q12H PRN PO CONSTIPATION; Start 07/27/18 at 22:30 Pantoprazole (Protonix Tab) 40 mg DAILY@06 PO ; Start 07/28/18 at 06:00 Enoxaparin Sodium (Lovenox) 30 mg DAILY SC Last administered on 07/28/18at 09:19; Admin Dose 30 MG; Start 07/28/18 at 09:00 Vancomycin HCl (Vanco Iv Per Pharmacy) VANCOMYCIN PER PHARMACY PER PROTOCOL XX ; Start 07/27/18 at 22:30 Midazolam HCl 50 ml @ 3 mls/hr ONCE STAT IV Last administered on 07/27/18at 23:24; Admin Dose 3 MLS/HR; Start 07/27/18 at 22:43; Stop 07/28/18 at 15:22 Fentanyl 100 ml @ 2.5 mls/hr TITRATE ONCE IV Last administered on 07/28/18at 09:19; Admin Dose 2.5 MLS/HR; Start 07/27/18 at 23:00; Stop 07/29/18 at 14:59 Norepinephrine 250 ml @ 7.5 mls/hr ONCE STAT IV Last administered on 07/27/18at 23:22; Admin Dose 7.5 MLS/HR; Start 07/27/18 at 22:43; Stop 07/29/18 at 08:02 Albuterol (Ventolin Hfa) 4 puff Q4H RESP THERAPY INH Last administered on 07/28/18at 09:37; Admin Dose 4 PUFF; Start 07/28/18 at 05:00 Ipratropium [place] (Atrovent Hfa) 4 puff Q4H RESP THERAPY INH Last a dministered on 07/28/18at 09:37; Admin Dose 4 PUFF; Start 07/28/18 at 05:00 Insulin Aspart (Novolog Insulin Pen) NOVOLOG *MILD* ALGORI... Q4 SC ; Start 07/28/18 at 13:00 Miscellaneous Information 1 ea NOTE XX ; Start 07/28/18 at 09:30 Glucose (Glutose) 15 gm Q15M PRN PO DECREASED GLUCOSE; Start 07/28/18 at 09:30 Glucose (Glutose) 22.5 gm Q15M PRN PO DECREASED GLUCOSE; Start 07/28/18 at 09:30 Dextrose (D50w Syringe) 25 ml Q15M PRN IV DECREASED GLUCOSE; Start 07/28/18 at 09:30 Dextrose (D50w Syringe) 50 ml Q15M PRN IV DECREASED GLUCOSE; Start 07/28/18 at 09:30 Glucagon (Glucagen) 1 mg Q15M PRN IM DECREASED GLUCOSE; Start 07/28/18 at 09:30 Glucose (Glutose) 15 gm Q15M PRN BUCCAL DECREASED GLUCOSE; Start 07/28/18 at 09:30 Allergies: Coded Allergies: No Known Allergy (Unverified , 07/27/18) Past Surgical History Past Surgical Hx: other (Not available ) Family History Significant Family History: other (not available, as per sister, no famiyl h/o CAD/Stroke/CKD) Social History Alcohol Use: none Smoking Status: Unknown if ever smoked Drug Use: none Exam/Review of Systems Vital Signs Vitals Vital Signs Date Temp Pulse Resp B/P (MAP) Pulse Ox O2 O2 Flow FiO2 Time Delivery Rate 07/28/18 51 08:00 07/28/18 15 110/67 100 06:30 (81) 07/28/18 50 05:07 07/28/18 97.2 04:00 07/28/18 Mechanical 00:47 Ventilator Intake and Output 07/27/18 07/27/18 07/28/18 1515:00 23:00 07:00 IntakeIntake Total 1000 ml OutputOutput Total 325 ml BalanceBalance 675 ml Exam Constitutional: non-verbal, other (Intubated on ventilator, Moderate distress) Head: normocephalic Eyes: other ENMT: other (ET tube in place, NG tube in place ) Neck: supple, jvd Respiratory: congested cough, crackles/rales, diminished breath sounds Cardiovascular: regular rate and rhythm Gastrointestinal: soft, non-tender Musculoskeletal: swelling (1-2+ LE pitting edema ) Neurological: other (Intubated, sedated on ventilator ) Lymph: nl lymph nodes Medications Medications Current Medications Nitroglycerin/ Dextrose 250 ml @ 80 mls/hr TITRATE IV ; Start 07/27/18 at 22:30 Ondansetron HCl (Zofran Inj) 4 mg Q6H PRN IV NAUSEA AND/OR VOMITING; Start 07/27/18 at 22:30 Acetaminophen (Tylenol Tab) 650 mg Q6H PRN PO PAIN LEVEL 1-3 OR FEVER; Start 07/27/18 at 22:30 Morphine Sulfate (morphine) 2 mg Q4H PRN IV PAIN LEVEL 7-10; Start 07/27/18 at 22:30 Docusate Sodium (Colace) 100 mg Q12H PRN PO CONSTIPATION; Start 07/27/18 at 22:30 Pantoprazole (Protonix Tab) 40 mg DAILY@06 PO ; Start 07/28/18 at 06:00 Enoxaparin Sodium (Lovenox) 30 mg DAILY SC Last administered on 07/28/18at 09:19; Admin Dose 30 MG; Start 07/28/18 at 09:00 Vancomycin HCl (Vanco Iv Per Pharmacy) VANCOMYCIN PER PHARMACY PER PROTOCOL XX ; Start 07/27/18 at 22:30 Midazolam HCl 50 ml @ 3 mls/hr ONCE STAT IV Last administered on 07/27/18at 23:24; Admin Dose 3 MLS/HR; Start 07/27/18 at 22:43; Stop 07/28/18 at 15:22 Fentanyl 100 ml @ 2.5 mls/hr TITRATE ONCE IV Last administered on 07/28/18at 09:19; Admin Dose 2.5 MLS/HR; Start 07/27/18 at 23:00; Stop 07/29/18 at 14:59 Norepinephrine 250 ml @ 7.5 mls/hr ONCE STAT IV Last administered on 07/27/18at 23:22; Admin Dose 7.5 MLS/HR; Start 07/27/18 at 22:43; Stop 07/29/18 at 08:02 Albuterol (Ventolin Hfa) 4 puff Q4H RESP THERAPY INH Last administered on 07/28/18at 09:37; Admin Dose 4 PUFF; Start 07/28/18 at 05:00 Ipratropium [place] (Atrovent Hfa) 4 puff Q4H RESP THERAPY INH Last administered on 07/28/18at 09:37; Admin Dose 4 PUFF; Start 07/28/18 at 05:00 Insulin Aspart (Novolog Insulin Pen) NOVOLOG *MILD* ALGORI... Q4 SC ; Start 07/28/18 at 13:00 Miscellaneous Information 1 ea NOTE XX ; Start 07/28/18 at 09:30 Glucose (Glutose) 15 gm Q15M PRN PO DECREASED GLUCOSE; Start 07/28/18 at 09:30 Glucose (Glutose) 22.5 gm Q15M PRN PO DECREASED GLUCOSE; Start 07/28/18 at 09:30 Dextrose (D50w Syringe) 25 ml Q15M PRN IV DECREASED GLUCOSE; Start 07/28/18 at 09:30 Dextrose (D50w Syringe) 50 ml Q15M PRN IV DECREASED GLUCOSE; Start 07/28/18 at 09:30 Glucagon (Glucagen) 1 mg Q15M PRN IM DECREASED GLUCOSE; Start 07/28/18 at 09:30 Glucose (Glutose) 15 gm Q15M PRN BUCCAL DECREASED GLUCOSE; Start 07/28/18 at 09:30 LAURA MAYFIELD MD Jul 28, 2018 09:55
[2018-07-28] MEDS ORDERED: BUMETANIDE 12 MG in DEXTROSE 5% 72 ML IV ONE (11:00)
[2018-07-28] MEDS: ALBUMIN HUMAN 25% 100 ML IV SCH ×2 (11:12→18:54)
[2018-07-28] MEDS ORDERED: FENTAnyl (DRIP) 1000 mcg/100mL 100 ML IV SCH (11:30)
[2018-07-28] MEDS: MIDAZOLAM (DRIP) 50 mg/50 mL 50 ML IV SCH (14:02)
[2018-07-28] MEDS: INSULIN ASPART [NOVOLOG] 3 ML PEN SC SCH ×3 (14:10→21:00)
--- NOTE | 2018-07-28 15:47 | CONS ---
DATE OF ADMISSION: 07/27/2018 DATE OF CONSULTATION: 07/28/2018 VASCULAR SURGERY CONSULTATION Dear Doctors: Mr. Michaels is a 53-year-old gentleman who presented to [facility] by EMS secondary to what appears to be shortness of breath, in which he required to be intubated for respiratory failure. 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 At that time, patient was medically treated for the type B dissection and with antibiotics for his respiratory pathology. The patient overnight continued to have renal failure and his presenting creatinine was 5.8 and he has a limited urine output, was started on Bumex drip to assist with that. Vascular surgery consultation was obtained today for evaluation of his type B dissection and possibility of his malperfusion to his kidneys. Patient unable to answer any questions as he is intubated and sedated. Sister is at the bedside and is able to answer some questions with a certified weighmaster. REVIEW OF SYSTEMS: A 14-point review performed and negative except what is mentioned in the HPI, although it is limited as the patient is intubated and sedated. PAST MEDICAL HISTORY: Entails type B dissection, multifocal pneumonia, possible cardiomyopathy, acute on chronic renal failure, hypertension. PAST SURGICAL HISTORY: None has been reported. FAMILY HISTORY: Positive for hypertension. SOCIAL HISTORY: No current alcohol, tobacco or illicit drug abuse. PHYSICAL EXAMINATION: GENERAL: The patient is currently intubated and sedated. HEENT: Normocephalic, atraumatic. Mucosa moist. NECK: Supple, no carotid bruit. ET tube intact. PULMONARY: Coarse breath sounds bilaterally, some crackles at the bases. CARDIOVASCULAR: S1, S2 present. ABDOMEN: Softly distended, nontender. Bowel sounds positive. EXTREMITIES: Right lower extremity palpable femoral pulse, faint pedal pulse (unequal pulses compared to the left side). Motor and sensory unable to ascertain as the patient is intubated and sedated. Capillary refill 3 seconds. Dry and scaly skin. Edema 1 to 2+. Left lower extremity palpable femoral pulse, palpable pedal pulse. Motor and sensory unable to ascertain as the patient is intubated and sedated. Cap refill 3 seconds. Dry and scaly skin. Edema 1 to 2+. Bilateral upper extremities, palpable brachial pulse. Motor and sensory unable to ascertain as the patient is intubated and sedated. Cap refill 3 seconds. ASSESSMENT AND PLAN: Type B aortic dissection: It seems the patient had an incidental finding about a week ago with a type B dissection extending from the left subclavian artery down to his left iliac artery. At that time, it appeared that the patient has been optimized from the type B dissection; however, given his recent admission secondary to respiratory failure and now perfusion to his renal vessels and worsening creatinine upon admission would recommend for the patient to be transferred to higher level of care. Would recommend for the patient to be transferred to [facility] as the patient is known to our vascular surgery colleagues, whom I have contacted regarding the findings. -Upon his abdominal ultrasound that we had obtained, it was identified patient having some right perinephric fluid, which could be concerning with a possible right renal infarct secondary to possible malperfusion. Unfortunately, as the patient would have very limited resources for possibility of repair of the dissection as they are not available at our hospital, the patient would benefit from this transfer to tertiary care should he need surgical intervention. Would recommend for the patient to continue with respiratory support and the respiratory toiletry. Continue with current antibiotics. The patient will require to undergo CT angiography abdomen and pelvis; however, this should be done at a tertiary center as this would provide better assistance instead of the report being given from our hospital. Discussed findings, plan and management with the patient's sister at the bedside. She understands, certified weighmaster was present. Optimize vascular status (BP meds, diet, nutrition, exercise, sugar control). Thank you for allowing us to partake in the care of your patient. Please call with any questions. Dictated By: MAURIZIO CALL/NTS Conf#: [id number] DID#: [id number] CC: SEVEN PINA MD; LAURA MAYFIELD MD;*EndCC* MTDD
--- NOTE | 2018-07-28 16:44 | PN ---
DATE: 07/28/2018 SUBJECTIVE: Patient is intubated and sedated. PHYSICAL EXAMINATION: VITAL SIGNS: Stable. LUNGS: Bilateral rhonchi. HEART: Regular rate and rhythm. ABDOMEN: Soft, normoactive bowel sounds. EXTREMITIES: 3+ pitting edema. ASSESSMENT AND PLAN: 1. A 53-year-old male with acute respiratory failure. 2. Right lower lobe pneumonia. 3. Acute kidney injury. 4. History of type B aortic dissection from subclavian to iliac artery. The patient was hospitalize d at [facility] and the decision was to manage the dissection medically. 5. Acute pancreatitis. Lipase is improving. 6. Hypertension. PLAN: Wean off the ventilator. Check abdominal ultrasound results. Pulmonary and nephrology consul t for patient were requested and evaluation is pending. Dictated By: SEVEN ELIZONDO/PEDRO Conf#: [id number] DID#: [id number]
--- NOTE | 2018-07-28 17:18 | RADRPT ---
Echocardiogram Report Patient Name: ADRIEL BUENO Gender: Male Date: 1965 Study Date: 28-Jul-2018 Block Piler: Jerad oneill RDCS Location: ER Ref. Physician: NANCY YANEZ Quality: Adequate Procedures: Transthoracic echocardiogram with complete 2D, M-Mode, and doppler examination. Indications: Shock. 2D/M Mode Doppler Measurement Value Normal Ranges Measurement Value Normal Ranges LVIDd 2D 4.8 3.5 - 5.6 cm AV Peak Vickey 1.6 m/sec LVIDs 2D 3.6 2.1 - 4.1 cm AV Peak PG 11.0 mmHg FS 2D 25.6 % LVOT Peak Vickey 0.8 m/sec LVPWd 2D 1.3 0.6 - 1.1 cm LVOT Peak PG 2.0 mmHg IVSd 2D 1.2 0.6 - 1.1 cm MV E Peak Vickey 1.3 m/sec IVS/LVPW 2D 0.9 MV A Peak Vickey 0.4 m/sec AoR Diam 2D 2.3 2.0 - 3.7 cm MV E/A 3.1 LA/Ao 2D 2 0 - 1 MV Decel Time 190 msec EDV 2D 113.0 cm3 MV E/A 3.1 ESV 2D 46.7 cm3 TR Peak Vickey 2.8 m/sec LA Dimen 2D 4.3 2.3 - 4.0 cm TR Peak PG 32.0 mmHg RVSP 32.0 mmHg RA Pressure 5.0 Findings Left Ventricle: Lower limits of normal systolic function. Normal left ventricular cavity size. Mild concentric left ventricular hypertrophy. Ejection fraction is visually estimated at 50 %. Tissue Doppler/Mitral Doppler indices are within normal limits. Right Ventricle: Normal right ventricular size. Normal right ventricular systolic function. Left Atrium: There is moderate enlargement of left atrium. Right Atrium: There is mild enlargement of right atrium. Mitral Valve: Normal appearance of the mitral valve. Trace mitral regurgitation. Aortic Valve: Normal appearance of the aortic valve. Trace aortic valve regurgitation. Tricuspid Valve: Normal appearance of the tricuspid valve. Estimated peak PA systolic pressure 37 mmHg. There is mild tricuspid regurgitation. Pulmonic Valve: Normal pulmonic valve appearance. No evidence of pulmonic regurgitation. Pericardium: Normal pericardium with no significant pericardial effusion. Aorta: Normal aortic root. IVC: Dilated IVC without respiratory collapse consistent with elevated right atrial pressure. Conclusions Lower limits of normal systolic function. Normal left ventricular cavity size. Mild concentric left ventricular hypertrophy. Ejection fraction is visually estimated at 50 %. Tissue Doppler/Mitral Doppler indices are within normal limits. No significant valvular stenosis or regurgitation seen. Estimated peak PA systolic pressure 37 mmHg. Dilated IVC without respiratory collapse consistent with elevated right atrial pressure. Electronically Signed By: Roge Mcleod 28-Jul-2018 17:17:13 -0800 Patient Name: ADRIEL BUENO Study Date: 28-Jul-2018 [id number]
[2018-07-28] MEDS ORDERED: Vancomycin Iv Per Pharmacy XX (17:31)
--- NOTE | 2018-07-28 18:32 | DS ---
DATE OF ADMISSION: 07/27/2018 DATE OF DISCHARGE: 07/29/2018 DISCHARGE DIAGNOSES: 1. Acute respiratory failure, on mechanical ventilation. 2. Type B aortic dissection. 3. Acute kidney injury. 4. Rule out renal artery dissection. 5. Right lower lobe pneumonia. 6. Hypertension. 7. History of chronic kidney disease. 8. Volume overload. HOSPITAL COURSE: A 53-year-old male with recently diagnosed type B aortic dissection that extended f rom subclavian to iliac artery, was recently discharged from [facility] after he was stabilized, and the dec ision was to manage the aortic dissection medically. The patient presented to our facility with acut e respiratory distress. He was intubated in the emergency room. Chest x-ray showed right lower lobe infiltrate. There was evidence of acute kidney injury, with creatinine greater than 5. The patient was volume overloaded. He was seen in consultation by nephrology, pulmonary and vascular surgery. The recommendation was to transfer him to [facility] for further management. PHYSICAL EXAMINATION: GENERAL: a well-developed, well-nourished male who is intubated and sedated. VITAL SIGNS: Stable. LUNGS: Clear to auscultation. CARDIAC: Regular rate and rhythm. No murmurs or gallops. ABDOMEN: Soft. Normoactive bowel sounds. EXTREMITIES: 3+ pitting edema all the way up the thighs. PLAN: 1. Discharge to [facility] for further management of aortic root. 2. Patient will most likely need hemodialysis. The family was agreeable to transfer. Dictated By: SEVEN PINA MD SK/NTS Conf#: [id number] DID#: [id number] CC: LAURA MAYFIELD MD; MAURIZIO HERNANDEZ MD; SEVEN PINA MD;*EndCC*
[2018-07-29] VITALS (24 sets, daily range): BP systolic 106–132; BP diastolic 55–70; PULSE 61–69; RESP 11–22
[2018-07-29] MEDS: IPRATROPIUM (HFA) 12.9 GM INHALER INH SCH ×4 (00:11→13:45)
[2018-07-29] MEDS: ALBUTEROL HFA 8 GM INHALER INH SCH ×4 (00:11→13:45)
[2018-07-29] MEDS: INSULIN ASPART [NOVOLOG] 3 ML PEN SC SCH ×4 (02:11→13:00)
[2018-07-29] MEDS: ALBUMIN HUMAN 25% 100 ML IV SCH (03:02)
[2018-07-29] MEDS: MIDAZOLAM (DRIP) 50 mg/50 mL 50 ML IV SCH ×2 (05:15→15:25)
[2018-07-29] MEDS: PANTOPRAZOLE (EC) 40 MG TAB PO SCH (06:00)
[2018-07-29] MEDS: ENOXAPARIN 30 MG/0.3 ML SYG SC SCH (08:24)
[2018-07-29] MEDS ORDERED: CEFTRIAXONE 1 GM/50 ML (PMX) 50 ML IVPB SCH (09:00)
[2018-07-29] MEDS ORDERED: BUMETANIDE 2 MG in DEXTROSE 5% 17 ML IVPB SCH (10:30)
[2018-07-29] MEDS ORDERED: CEFEPIME 1GM/50 ML (PMX) 50 ML IVPB SCH (10:30)
--- NOTE | 2018-07-29 10:30 | CONS ---
Date/Time of Note Date/Time of Note DATE: 07/29/18 TIME: 10:26 Assessment/Plan Assessment/Plan Assessment/Plan Chest x-ray showing cardiomegaly with mild pulmonary vascular congestion. Infiltrative changes are present on the right side. Endotracheal tube is at an adequate level. H EENT exam; supple neck, no JVD. No lymphadenopathy. Midline trachea. No thyromegaly. Patient has fair dentition. Orally intubated. Chest exam; diminished but clear breath sounds. S1-S2 audible, no murmurs. Regular rhythm. Abdomen exam; soft, no organomegaly. Bowel sounds audible. Extremity exam; trace edema. Pulses 1+. NON LICENSED OPERATOR exam; patient is awake awake and follows simple commands. Ventilator setting; AC of 16, tidal volume 550, PEEP of 5, 30% FiO2. Patient is currently on fentanyl 25 mics per hour, Versed 5 mg/h. Bumex drip 1 mg/h. Assessment recommendations; 1. Patient admitted for respiratory failure due to pulmonary edema and right- sided pneumonia. 2. Acute on chronic renal failure. Patient however maintaining adequate urine output on Bumex drip. 3. Aortic aneurysm. 4. Anemia. 5. Diabetes. 6. History of hypertension. Continue current supportive care. Patient did well on CPAP mode. However he is awaiting transfer to [facility] for aortic aneurysm repair. Therefore will defer weaning from ventilator at this point. Meanwhile I would recommend stopping Rocephin and switch the patient to cefepime. Monitor renal function. 35 minutes of critical care time was spent evaluating the patient. Result Diagram: 07/29/18 0523 07/29/18 0523 Results 24hrs Laboratory Tests Test 07/28/18 14:01 07/28/18 16:00 07/28/18 17:50 07/28/18 21:38 Bedside Glucose 177 152 153 Urine Eosinophils % 0.0 Urine Random 61.03 Creatinine Urine Random Sodium 29 L Urine 0.65 Protein/Creatinine Ratio Urine Total Protein 40.0 H Test 07/29/18 01:50 07/29/18 05:05 07/29/18 05:23 07/29/18 08:20 Bedside Glucose 152 145 143 White Blood Count 8.5 Red Blood Count 3.01 L Hemoglobin 8.1 L Hematocrit 24.0 L Mean Corpuscular 79.7 L Volume Mean Corpuscular 26.9 L Hemoglobin Mean Corpuscular 33.8 Hemoglobin Concent Red Cell 14.1 Distribution Width Platelet Count 331 Mean Platelet Volume 11.2 H Immature 0.500 H Granulocytes % Neutrophils % 91.1 H Lymphocytes % 4.3 L Monocytes % 4.1 Eosinophils % 0.0 Basophils % 0.0 Nucleated Red Blood 0.0 Cells % Immature 0.040 H Granulocytes # Neutrophils # 7.7 H Lymphocytes # 0.4 L Monocytes # 0.4 Eosinophils # 0.0 Basophils # 0.0 Nucleated Red Blood 0.0 Cells # Sodium Level 135 Potassium Level 4.0 Chloride Level 99 Carbon Dioxide Level 18 L Anion Gap 18 H Blood Urea Nitrogen 88 H Creatinine 5.58 H Est Glomerular 11 L Filtrat Rate mL/min Glucose Level 129 # Uric Acid 13.2 H Calcium Level 7.6 L Creatine Kinase 133 Lipase 1546 H Consultation Date/Type/Reason Admit Date/Time Jul 27, 2018 at 22:00 Initial Consult Date 07/28/18 Type of Consult Pulmonary/critical care Patient is a 53-year-old male who was brought into the ER yesterday with shortness of breath. Patient was found to be in respiratory failure and was intubated. By the time I saw him in ICU, patient is orally intubated and sedated. History was obtained from patient's sister as well as medical record. Patient however did not appear to be in any distress. Past medical history; 1. CHF. 2. Likely chronic type II respiratory failure. 3. Diabetes. 4. Chronic lower extremity edema. 5. Apparent chronic renal insufficiency/failure. Medications; reviewed. Patient is currently on insulin 7 units/h, propofol 20 mics per minute. Other medications were reviewed as well. Allergies; none. Social; positive for smoking alcohol abuse. Family history; patient is single, has 3 children. Has 2 sisters who take care of him. Occupational history; patient is on disability/medical leave. Review of system; unable to be obtained. General exam; young male, morbidly obese, orally intubated, sedated, currently in no distress. Requesting Provider: SEVEN PINA MD 24 HR Interval Summary Free Text/Dictation Patient's condition remains critical. Despite being on fentanyl and Versed drips patient is awake and responsive. Has remained hemodynamically stable. General exam; middle-aged male, orally intubated, awake and responsive, currently in no distress. Exam/Review of Systems Vital Signs Vitals Vital Signs Date Temp Pulse Resp B/P (MAP) Pulse Ox O2 O2 Flow FiO2 Time Delivery Rate 07/29/18 64 16 110/56 98 Mechanical 09:00 (74) Ventilator 07/29/18 98.6 08:00 07/29/18 40 08:00 Intake and Output 07/28/18 07/28/18 07/29/18 1515:00 23:00 07:00 IntakeIntake Total 163.8 ml 221.0 ml 29.5 ml OutputOutput Total 1375 ml 1700 ml 995 ml BalanceBalance -1211.2 ml -1479.0 ml -965.5 ml Exam HEENT exam; supple neck, no JVD. No lymphadenopathy. Midline trachea. No thyromegaly. Orally intubated. Patient has fair dentition. Chest exam; diminished but clear breath sounds. S1-S2 audible, no murmurs. R egular rhythm. Abdomen exam; soft, nontender. No organomegaly. Bowel sounds audible. Extremity exam; trace edema. Pulses 1+. NON LICENSED OPERATOR exam; is awake and follows simple commands. Medications Medications Current Medications Nitroglycerin/ Dextrose 250 ml @ 80 mls/hr TITRATE IV ; Start 07/27/18 at 22:30 Ondansetron HCl (Zofran Inj) 4 mg Q6H PRN IV NAUSEA AND/OR VOMITING; Start 07/27/18 at 22:30 Acetaminophen (Tylenol Tab) 650 mg Q6H PRN PO PAIN LEVEL 1-3 OR FEVER; Start 07/27/18 at 22:30 Morphine Sulfate (morphine) 2 mg Q4H PRN IV PAIN LEVEL 7-10; Start 07/27/18 at 22:30 Docusate Sodium (Colace) 100 mg Q12H PRN PO CONSTIPATION; Start 07/27/18 at 22:30 Pantoprazole (Protonix Tab) 40 mg DAILY@06 PO ; Start 07/28/18 at 06:00 Enoxaparin Sodium (Lovenox) 30 mg DAILY SC Last administered on 07/29/18at 08:24; Admin Dose 30 MG; Start 07/28/18 at 09:00 Vancomycin HCl (Vanco Iv Per Pharmacy) VANCOMYCIN PER PHARMACY PER PROTOCOL XX ; Start 07/27/18 at 22:30 Albuterol (Ventolin Hfa) 4 puff Q4H RESP THERAPY INH Last administered on 07/29/18at 09:09; Admin Dose 4 PUFF; Start 07/28/18 at 05:00 Ipratropium [place] (Atrovent Hfa) 4 puff Q4H RESP THERAPY INH Last administered on 07/29/18at 09:09; Admin Dose 4 PUFF; Start 07/28/18 at 05:00 Insulin Aspart (Novolog Insulin Pen) NOVOLOG *MILD* ALGORI... Q4 SC Last administered on 07/29/18at 08:25; Admin Dose 1 UNIT; Start 07/28/18 at 13:00 Miscellaneous Information 1 ea NOTE XX ; Start 07/28/18 at 09:30 Glucose (Glutose) 15 gm Q15M PRN PO DECREASED GLUCOSE; Start 07/28/18 at 09:30 Glucose (Glutose) 22.5 gm Q15M PRN PO DECREASED GLUCOSE; Start 07/28/18 at 09:30 Dextrose (D50w Syringe) 25 ml Q15M PRN IV DECREASED GLUCOSE; Start 07/28/18 at 09:30 Dextrose (D50w Syringe) 50 ml Q15M PRN IV DECREASED GLUCOSE; Start 07/28/18 at 09:30 Glucagon (Glucagen) 1 mg Q15M PRN IM DECREASED GLUCOSE; Start 07/28/18 at 09:30 Glucose (Glutose) 15 gm Q15M PRN BUCCAL DECREASED GLUCOSE; Start 07/28/18 at 09:30 Fentanyl 100 ml @ 2.5 mls/hr TITRATE IV ; Start 07/28/18 at 11:30 Midazolam HCl 50 ml @ 1 mls/hr TITRATE IV Last administered on 07/29/18at 05:15; Admin Dose 3 MLS/HR; Start 07/28/18 at 11:30 Bumetanide 2 mg/ Dextrose 25 ml @ 50 mls/hr BID IVPB ; Start 07/29/18 at 10:30 DERIAN WU Jul 29, 2018 10:30
--- NOTE | 2018-07-29 12:45 | CONS ---
Date/Time of Note Date/Time of Note DATE: 07/29/18 TIME: 12:42 Assessment/Plan Assessment/Plan Assessment/Plan 1. Acute kidney injury Oliguric on CKD III due to ATN + possible Dissection causing poor perfusion 2. Acute fluid overload with pulmoanry edema 3. acute hypoxemic resp failure due to CHF + pulmonary Edema + Pneumonia 4. 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 Hyponatremia due to Hypervolemic Hyponatremia from CHF 6. H/o CHF wiht last known EF 22% as per sister 7. H/o HTN 8. H/o HL 9. H/o Aortic dissection type B Recently diagnosed at [facility] - type B dissection from the left subclavian to the left iliac artery Plan: pt remained intubated, BUN/Cr 88/5.58, K normal, awaiting [facility] transfer, Urine output 3.9 liter negative 2 liter, leg edema improving, will give bumex 2mg iV BID for diuresis, monitor BUN, no acute indication for hemodialysis at this time S/p vascular surgery consultation, agree with transfer to Tertiary level of care BP has been stable, IV abx for PNA, renally dose all abx and Monitor electrolytes Discussed with pt sister at bedside with slovenian translation about possible need of HD if Urine output do not improve and BUN continues to rise above 100- she is agreeable to have blade Dialysis catheter and HD initiaton if needed Pt will need CT angiogram of abodminal aorta for dissection but he needs to get transferred to Tertiary level of care. Adbominal US showed The kidneys are normal in size. The right kidney measures 10.5 cm in length, while the left measures 11.3 cm in length. The renal echotexture is echogenic. A 1.2 cm cyst is seen within the inferior pole left kidney. The kidneys are otherwise unremarkable with no mass, intra renal calcification, or hydronephrosis. There is a small amount of right perinephric fluid. will follow up Result Diagram: 07/29/18 0523 07/29/18 0523 Results 24hrs Laboratory Tests Test 07/28/18 14:01 07/28/18 16:00 07/28/18 17:50 07/28/18 21:38 Bedside Glucose 177 152 153 Urine Eosinophils 0.0 % Urine Random 61.03 Creatinine Urine Random 29 L Sodium Urine 0.65 Protein/Creatinin e Ratio Urine Total 40.0 H Protein Test 07/29/18 01:50 07/29/18 05:05 07/29/18 05:23 07/29/18 08:20 Bedside Glucose 152 145 143 White Blood Count 8.5 Red Blood Count 3.01 L Hemoglobin 8.1 L Hematocrit 24.0 L Mean Corpuscular 79.7 L Volume Mean Corpuscular 26.9 L Hemoglobin Mean Corpuscular 33.8 Hemoglobin Concen t Red Cell 14.1 Distribution Width Platelet Count 331 Mean Platelet 11.2 H Volume Immature 0.500 H Granulocytes % Neutrophils % 91.1 H Lymphocytes % 4.3 L Monocytes % 4.1 Eosinophils % 0.0 Basophils % 0.0 Nucleated Red 0.0 Blood Cells % Immature 0.040 H Granulocytes # Neutrophils # 7.7 H Lymphocytes # 0.4 L Monocytes # 0.4 Eosinophils # 0.0 Basophils # 0.0 Nucleated Red 0.0 Blood Cells # Sodium Level 135 Potassium Level 4.0 Chloride Level 99 Carbon Dioxide 18 L Level Anion Gap 18 H Blood Urea 88 H Nitrogen Creatinine 5.58 H Est Glomerular 11 L Filtrat Rate mL/min Glucose Level 129 # Uric Acid 13.2 H Calcium Level 7.6 L Creatine Kinase 133 Lipase 1546 H Test 07/29/18 10:23 Blood Gas Blood arterial Specimen Source Arterial Blood 07/29/2018 11:00: Date Drawn 32 AM Arterial Blood pH 7.384 (Temp corrected) Arterial Blood 33.3 L pCO2 (Temp correct) Arterial Blood 73.3 L pO2 (Temp corrected) Arterial Blood 19.4 L HCO3 Arterial Blood -4.9 L Base Excess Arterial Blood 92.7 L Oxygen Saturation Sg Test N/A Arterial Blood Right Brachial Gas Puncture Site Arterial 0.3 Blood Carboxyhemo globin Arterial Blood 0.4 Methemoglobin Blood Gas A-a O2 101.5 H Differential Oxyhemoglobin 92.1 L Percent Blood Gas 37.0 Temperature Blood Gas 16.0 Respiration Rate Blood Gas Actual 20 Respiration Rate Blood Gas VENT - AC Modality FiO2 30.0 Blood Gas Tidal 550.0 Volume Blood Gas Low 5.0 PEEP Setting Blood Gas KS Notified Whom Blood Gas 07/29/2018 11:20: Notified Time 19 AM Consultation Date/Type/Reason Admit Date/Time Jul 27, 2018 at 22:00 Initial Consult Date 07/28/18 Type of Consult NEPHROLOGY Requesting Provider: SEVEN PINA MD 24 HR Interval Summary Free Text/Dictation pt remained intubated, BUN/Cr 88/5.58, K normal, awaiting [facility] transfer, Urine output 3.9 liter negative 2 liter Exam/Review of Systems Vital Signs Vitals Vital Signs Date Temp Pulse Resp B/P (MAP) Pulse Ox O2 O2 Flow FiO2 Time Delivery Rate 07/29/18 64 19 97 30 11:00 07/29/18 110/56 Mechanical 09:00 (74) Ventilator 07/29/18 98.6 08:00 Intake and Output 07/28/18 07/28/18 07/29/18 1515:00 23:00 07:00 IntakeIntake Total 163.8 ml 221.0 ml 135.0 ml OutputOutput Total 1375 ml 1700 ml 995 ml BalanceBalance -1211.2 ml -1479.0 ml -860.0 ml Exam Constitutional: non-verbal, other (Intubated on ventilator, Moderate distress) ENMT: other (ET tube in place, NG tube in place ) Neck: supple, jvd Respiratory: congested cough, crackles/rales, diminished breath sounds Cardiovascular: regular rate and rhythm Gastrointestinal: soft, non-tender Musculoskeletal: swelling (1-2+ LE pitting edema ) Neurological: other (Intubated, sedated on ventilator ) Medications Medications Current Medications Nitroglycerin/ Dextrose 250 ml @ 80 mls/hr TITRATE IV ; Start 07/27/18 at 22:30 Ondansetron HCl (Zofran Inj) 4 mg Q6H PRN IV NAUSEA AND/OR VOMITING; Start 07/27/18 at 22:30 Acetaminophen (Tylenol Tab) 650 mg Q6H PRN PO PAIN LEVEL 1-3 OR FEVER; Start 07/27/18 at 22:30 Morphine Sulfate (morphine) 2 mg Q4H PRN IV PAIN LEVEL 7-10; Start 07/27/18 at 22:30 Docusate Sodium (Colace) 100 mg Q12H PRN PO CONSTIPATION; Start 07/27/18 at 22:30 Pantoprazole (Protonix Tab) 40 mg DAILY@06 PO ; Start 07/28/18 at 06:00 Enoxaparin Sodium (Lovenox) 30 mg DAILY SC Last administered on 07/29/18at 08:24; Admin Dose 30 MG; Start 07/28/18 at 09:00 Vancomycin HCl (Vanco Iv Per Pharmacy) VANCOMYCIN PER PHARMACY PER PROTOCOL XX ; Start 07/27/18 at 22:30 Albuterol (Ventolin Hfa) 4 puff Q4H RESP THERAPY INH Last administered on 07/29/18at 09:09; Admin Dose 4 PUFF; Start 07/28/18 at 05:00 Ipratropium [place] (Atrovent Hfa) 4 puff Q4H RESP THERAPY INH Last administered on 07/29/18at 09:09; Admin Dose 4 PUFF; Start 07/28/18 at 05:00 Insulin Aspart (Novolog Insulin Pen) NOVOLOG *MILD* ALGORI... Q4 SC Last administered on 07/29/18at 08:25; Admin Dose 1 UNIT; Start 07/28/18 at 13:00 Miscellaneous Information 1 ea NOTE XX ; Start 07/28/18 at 09:30 Glucose (Glutose) 15 gm Q15M PRN PO DECREASED GLUCOSE; Start 07/28/18 at 09:30 Glucose (Glutose) 22.5 gm Q15M PRN PO DECREASED GLUCOSE; Start 07/28/18 at 09:30 Dextrose (D50w Syringe) 25 ml Q15M PRN IV DECREASED GLUCOSE; Start 07/28/18 at 09:30 Dextrose (D50w Syringe) 50 ml Q15M PRN IV DECREASED GLUCOSE; Start 07/28/18 at 09:30 Glucagon (Glucagen) 1 mg Q15M PRN IM DECREASED GLUCOSE; Start 07/28/18 at 09:30 Glucose (Glutose) 15 gm Q15M PRN BUCCAL DECREASED GLUCOSE; Start 07/28/18 at 09:30 Fentanyl 100 ml @ 2.5 mls/hr TITRATE IV ; Start 07/28/18 at 11:30 Midazolam HCl 50 ml @ 1 mls/hr TITRATE IV Last administered on 07/29/18at 05:15; Admin Dose 3 MLS/HR; Start 07/28/18 at 11:30 Bumetanide 2 mg/ Dextrose 25 ml @ 50 mls/hr BID IVPB Last administered on 07/29/18at 11:25; Admin Dose 50 MLS/HR; Start 07/29/18 at 10:30 Cefepime HCl 50 ml @ 100 mls/hr DAILY IVPB Last administered on 07/29/18at 11:25; Admin Dose 100 MLS/HR; Start 07/29/18 at 10:30 LAURA MAYFIELD MD Jul 29, 2018 12:45
--- NOTE | 2018-07-30 07:45 | PN ---
DATE: 07/29/2018 SUBJECTIVE: Patient remains intubated and sedated. Vital signs are stable. He is afebrile. LUNGS: Coarse breath sounds. HEART: Regular rate and rhythm. No murmurs or gallops. ABDOMEN: Soft, normoactive bowel sounds. EXTREMITIES: Remain edematous but decreased edema compared to admission. NEUROLOGIC: Sedated. The BUN and creatinine are 88 and 5.58. Lipase is 1,546. Uric acid is elevated at 13.2. ASSESSMENT AND PLAN: 1. A 53-year-old male with a type B aortic dissection. 2. Acute respiratory failure. 3. Acute kidney injury. Rule out renal artery dissection. 4. Fluid overload. The patient was placed on a Bumex drip and he has diuresed about 2 liters. 5. Hypertension is well controlled. PLAN: Await transfer to [facility] when bed becomes available. The pulmonary, nephrology, and vascular fol lowup is appreciated. I decided to continue vancomycin and Rocephin for possible right lower lobe pn eumonia. Dictated By: SEVEN ELIZONDO/NTS Conf#: [id number] DID#: [id number] CC: LAURA MAYFIELD MD;*EndCC*
--- NOTE | 2018-07-30 07:52 | HP ---
DATE OF ADMISSION: 07/27/2018 CHIEF COMPLAINT: Shortness of breath. HISTORY OF PRESENT ILLNESS: A 53-year-old male with a recently diagnosed aortic aneurysm now present s to the emergency room with a complaint of shortness of breath. He denied any chest pain. There wa s no history of abdominal pain, nausea or vomiting. Initial evaluation in the emergency room include d a chest x-ray which showed a possible right lower lobe infiltrate. The patient had significant tor ma in bilateral lower extremities. White blood cell count was normal. There was evidence of acute k idney injury with BUN of 71 and creatinine of 5.53. His baseline creatinine was above 1 recently. H is lipase was elevated at 3466. BNP was elevated at 5310. Serum lactate was normal at 1.9. The pat ient was initially maintained on BiPAP in the emergency room. However, his condition deteriorated an d he requires mechanical ventilation. No previous information is available at the time being. PHYSICAL EXAMINATION GENERAL: Well-developed, well-nourished male who is intubated and sedated. VITAL SIGNS: Blood pressure 93/59, respiration of 16, pulse 62. He is afebrile. LUNGS: Bilateral rhonchi. Rales at the right base. CARDIAC: Regular rate and rhythm. No murmurs or gallops. ABDOMEN: Soft. Normoactive bowel sounds. EXTREMITIES: Bilateral edema all the way to the thighs and lower abdomen. LABORATORIES: Sodium 127, potassium 4.8, chloride 95, bicarbonate 21, anion gap 11, BUN 71, creatini ne 5.53. The liver function tests reveal AST of 76, ALT of 102, alkaline phosphatase and lipas e of 3466. Hemoglobin A1c of 6.3. White blood cell count 7.5, hemoglobin 8.5, platelet count is 324 ,000. ASSESSMENT: 1. A 53-year-old male presenting with acute respiratory failure requiring mechanical ventilation. 2. Right lower lobe pneumonia. 3. Acute kidney injury. 4. Acute pancreatitis. 4. Hyponatremia. 5. Fluid overload. 6. History of aortic aneurysm. PLAN: Admit to ICU, continue ventilatory support, IV vancomycin and Rocephin. Respiratory treatment . Keep n.p.o. Pulmonary and nephrology consultations have been requested that. I also requested brian garcia summary records from [facility] since patient was recently hospitalized at that facility. Dictated By: SEVEN ELIZONDO/PEDRO Conf#: [id number] DID#: [id number]
== END 2018-07-29 15:55 | disposition short-term general hospital (02) | DRG 208 ==
LOC: E/R 20:29 → ICU 22:00
PROVIDERS: ADMIT Internal Medicine; ATTEND Internal Medicine
PROC: 5A1945Z Respiratory Ventilation, 24-96 Consecutive Hours (ICD-10-PCS; principal; 2018-07-27)
PROC: 0BH17EZ Insertion of Endotracheal Airway into Trachea, Via Natural or Artificial Opening (ICD-10-PCS; 2018-07-27)
PROC: 02HV33Z Insertion of Infusion Device into Superior Vena Cava, Percutaneous Approach (ICD-10-PCS; 2018-07-27)
PROC: B543ZZA Ultrasonography of Right Jugular Veins, Guidance (ICD-10-PCS; 2018-07-27)
PROC: 4A133R1 Monitoring of Arterial Saturation, Peripheral, Percutaneous Approach (ICD-10-PCS; 2018-07-27)
DX: J96.01 Acute respiratory failure with hypoxia (principal); J18.9 Pneumonia, unspecified organism; K85.90 Acute pancreatitis without necrosis or infection, unspecified; I71.02 Dissection of abdominal aorta; N17.0 Acute kidney failure with tubular necrosis; I77.73 Dissection of renal artery; E87.1 Hypo-osmolality and hyponatremia; N39.0 Urinary tract infection, site not specified; I13.0 Hypertensive heart and chronic kidney disease with heart failure and stage 1 through stage 4 chronic kidney disease, or unspecified chronic kidney disease; I50.9 Heart failure, unspecified; E66.01 Morbid (severe) obesity due to excess calories; E11.22 Type 2 diabetes mellitus with diabetic chronic kidney disease; N18.3 Chronic kidney disease, stage 3 (moderate); E11.21 Type 2 diabetes mellitus with diabetic nephropathy; E78.5 Hyperlipidemia, unspecified; D64.9 Anemia, unspecified
CPT/HCPCS: 31500; 36600; 71045; 76700; 80048; 80053; 81001; 81003; 82550; 82570; 82803; 82962; 83036; 83605; 83690; 83880; 84300; 84478; 84484; 84560; 85025; 85610; 85730; 87040; 87081; 87086; 89190; 93005; 93306; 94002; 94003; 94640; 94644; 94660; 94770; 96365; 96368; 96375; J0692; J0696; J1100; J1650; J1815; J1940; J2250; J3010; J3370; J7030; P9047